=== PATIENT | male | born 1980 | race Caucasian/White ===

== ENCOUNTER 2016-06-10 03:46 | Emergency (ER) | payer BC ==
[~2016-06-10] VITALS: Ht 177.8 cm; Wt 79.4 kg
[2016-06-10 04:05] VITALS: BP 135/75
[2016-06-10] MEDS ORDERED: HYDROCODONE/APAP 5/325MG 1 EACH TABLET ONE (04:17)
[2016-06-10] MEDS ORDERED: HYDROCODONE/APAP 5/325MG 1 EACH TABLET PO ONE (04:30)
== END 2016-06-10 05:14 | disposition home or self-care (01) ==
LOC: ER 03:46
DX: G51.0 Bell's palsy (principal)
CPT/HCPCS: 70450; 99284; A4606; Z7610

== ENCOUNTER 2019-03-21 03:34 | Emergency (ER) | payer BC ==
[~2019-03-21] VITALS: Ht 185.4 cm; Wt 85.3 kg
[2019-03-21 03:47] VITALS: BP 143/78
== END 2019-03-21 04:07 | disposition home or self-care (01) ==
LOC: ER 03:38
DX: L08.9 Local infection of the skin and subcutaneous tissue, unspecified (principal); Z90.89 Acquired absence of other organs; Z91.048 Other nonmedicinal substance allergy status

== ENCOUNTER 2019-09-21 02:49 | Emergency (ER) | payer BC ==
[~2019-09-21] VITALS: Ht 185.4 cm; Wt 82.6 kg
[2019-09-21 03:21] VITALS: BP 130/89
== END 2019-09-21 05:59 | disposition home or self-care (01) ==
LOC: ER 02:49
DX: M79.645 Pain in left finger(s) (principal); F17.200 Nicotine dependence, unspecified, uncomplicated; Z90.89 Acquired absence of other organs; Z88.8 Allergy status to other drugs, medicaments and biological substances; W22.8XXA Striking against or struck by other objects, initial encounter; Y93.89 Activity, other specified; Y92.89 Other specified places as the place of occurrence of the external cause; Y99.8 Other external cause status
CPT/HCPCS: 29130; 73140; 99283; J7030

== ENCOUNTER 2021-12-30 00:09 | Emergency (ER) | payer BC ==
[~2021-12-30] VITALS: Ht 185.4 cm; Wt 86.2 kg
[2021-12-30 00:21] VITALS: BP 147/79
--- NOTE | 2021-12-30 00:35 | NUR ---
Patient discharged to home in stable condition. Written and verbal after care instructions given. Patient verbalizes understanding of instruction.
== END 2021-12-30 00:35 | disposition home or self-care (01) ==
LOC: ER 00:14
DX: S01.01XA Laceration without foreign body of scalp, initial encounter (principal); Z90.89 Acquired absence of other organs; Z88.8 Allergy status to other drugs, medicaments and biological substances; W22.8XXA Striking against or struck by other objects, initial encounter; Y93.89 Activity, other specified; Y92.89 Other specified places as the place of occurrence of the external cause; Y99.8 Other external cause status